=== PATIENT | female | born 1995 | race Caucasian/White ===

== ENCOUNTER 2016-12-14 10:20 | Emergency (ER) | payer BC ==
[2016-12-14] MEDS ORDERED: Tetracaine 0.5% Ophth 2 ML BOTTLE ONE (10:46)
[2016-12-14 10:48] VITALS: BP 104/69; PULSE 65; RESP 19; TEMP 98.2; O2SAT 98; BMI 21.1
--- NOTE | 2016-12-14 10:59 | ED PDOC ---
Arrival/HPI - General Chief Complaint: Eye Problem Time Seen by Provider: 12/14/16 10:54 Historian: Patient, Family (sister) - History of Present Illness Narrative History of Present Illness (Text): 12/14/16 10:54 This 21 yo female presents to this ED c/o right redness, itching, and discharge since this morning. Patient denies eye trauma, eye contact lens use, facial redness, or vision change. Time/Duration: Other (since this morning) Context: Home Past Medical History - Provider Review Nursing Documentation Reviewed: Yes - Infectious Disease Hx of Infectious Diseases: None - Cardiac Hx Cardiac Disorders: Yes Hx Heart Murmur: Yes (as a child) - Pulmonary Hx Respiratory Disorders: No - Neurological Hx Neurological Disorder: No - HEENT Hx HEENT Disorder: No - Renal Hx Renal Disorder: No - Endocrine/Metabolic Hx Endocrine Disorders: No - Hematological/Oncological Hx Blood Disorders: No - Integumentary Hx Dermatological Disorder: No - Musculoskeletal/Rheumatological Hx Musculoskeletal Disorders: No - Gastrointestinal Hx Gastrointestinal Disorders: No - Genitourinary/Gynecological Hx Genitourinary Disorders: No - Psychiatric Hx Psychophysiologic Disorder: No Hx Substance Use: No - Anesthesia Hx Anesthesia: No - Suicidal Assessment Feels Threatened In Home Enviroment: No Family/Social History - Physician Review Nursing Documentation Reviewed: Yes Family/Social History: No Known Family HX Smoking Status: Never Smoked Hx Alcohol Use: No Hx Substance Use: No Hx Substance Use Treatment: No Allergies/Home Meds Allergies/Adverse Reactions: Allergies cefaclor Allergy (Verified 12/14/16 10:35) SWELLING Penicillins Allergy (Verified 12/14/16 10:35) SWELLING Review of Systems - Review of Systems Constitutional: Normal. absent: Fatigue, Weight Change, Fevers Eyes: Vision Changes, Other (See HPI). absent: Photophobia, Eye Pain ENT: Normal Respiratory: Normal. absent: SOB, Cough Cardiovascular: Normal. absent: Chest Pain, Palpitations Gastrointestinal: Normal. absent: Abdominal Pain, Nausea, Vomiting Genitourinary Female: Normal Musculoskeletal: Normal Skin: Normal Neurological: Normal Endocrine: Normal Hemo/Lymphatic: Normal Psychiatric: Normal Physical Exam Vital Signs Temp Pulse Resp BP Pulse Ox 12/14/16 10:37 98.2 F 65 19 104/69 98 Temperature: Afebrile Blood Pressure: Normal Pulse: Regular Respiratory Rate: Normal Appearance: Positive for: Well-Appearing, Non-Toxic, Comfortable Pain Distress: None Mental Status: Positive for: Alert and Oriented X 3 - Systems Exam Head: Present: Atraumatic, Normocephalic Pupils: Present: PERRL, Other (No stye. ) Extroacular Muscles: Present: EOMI, Other (Fluorescine stain was negative. No corneal abrasion, laceration, or ulcer. No dendritic lesions. No FB). No: Entrapment Conjunctiva: Present: Injected, Other (with trace discharge on right eye. Left eye is normal) Mouth: Present: Moist Mucous Membranes Neck: Present: Normal Range of Motion Upper Extremity: Present: Normal Inspection, Normal ROM Lower Extremity: Present: Normal Inspection, Normal ROM Neurological: Present: GCS=15, CN II-XII Intact, Speech Normal, Motor Func Grossly Intact, Normal Sensory Function, Normal Cerebellar Funct, Gait Normal Skin: Present: Warm, Dry, Normal Color. No: Rashes Psychiatric: Present: Alert, Oriented x 3 Medical Decision Making ED Course and Treatment: 12/14/16 11:01 Re-evaluation. Patient feels better. Discussed results and plan with patient who expresses understanding. All questions answered and there is agreement with the plan to discharge home with instructions. Patient stable for discharge. Return if symptoms persist or worsen Patient was recommended to f/u pmd in 1-2 days, and to return to emergency if symptoms worsen Re-evaluation Time: 11:01 Reassessment Condition: Re-examined, Improved - Medication Orders Current Medication Orders: Discontinued Medications Tetracaine HCl (Tetracaine 0.5% Oph Soln) Confirm Administered Dose 2 drop .ROUTE .[facility] Stop: 12/14/16 10:47 Disposition/Present on Arrival - Present on Arrival Any Indicators Present on Arrival: No History of DVT/PE: No History of Uncontrolled Diabetes: No Urinary Catheter: No History of Decub. Ulcer: No History Surgical Site Infection Following: None - Disposition Have Diagnosis and Disposition been Completed?: Yes Diagnosis: Conjunctivitis Disposition: HOME/ ROUTINE Disposition Time: 11:02 Patient Plan: Discharge Patient Problems: Current Active Problems Problem Status Onset Conjunctivitis Acute Condition: GOOD Discharge Instructions (ExitCare): Conjunctivitis (ED) Additional Instructions: Call private doctor for follow up visit in 1-2 days. Take medication as instructed. Hand washing a must. Return to emergency if symptoms worsen. Call Eye doctor if symptoms worsen Prescriptions: Moxifloxacin HCl [Vigamox 3 ml] 1 drop OD TID #1 bottle Referrals: PCP,NO [Primary Care Provider] - Follow up with primary Antonio Conti MD [Staff Provider] - Follow up with primary
== END 2016-12-14 11:23 | disposition home or self-care (01) ==
LOC: ED 10:20
DX: H10.9 Unspecified conjunctivitis (principal)